=== PATIENT | female | born 1965 | race Caucasian/White ===

== ENCOUNTER → 2018-03-31 06:50 | Outpatient (CLI) | payer OTHER, SELFPAY ==
--- NOTE | 2018-03-31 07:00 | CT_ITS ---
STUDY: CT MAXILLOFACIAL SINUSES REASON FOR EXAM: Female, 52 years old. History of sinusitis. RADIATION DOSAGE (If Supplied By Facility): CTDIvol = ( 33.06 ) mGy, DLP = ( 837.98 ) mGycm TECHNIQUE: The patient was scanned in a multi detector CT scanner. High resolution axial imaging was performed without the administration of intravenous contrast material. Sagittal and coronal images were reconstructed. Individualized dose optimization techniques were used for this CT. COMPARISON: None. FINDINGS: FRONTAL SINUSES: Normal aeration, without mucosal inflammatory disease. ETHMOIDAL SINUSES: Minimal mucosal thickening of the ethmoid sinuses bilaterally slightly worse on the left side. MAXILLARY SINUSES: Minimal mucosal thickening of the lateral wall of the left maxillary sinus. SPHENOIDAL SINUSES: Normal aeration, without mucosal inflammatory disease. There is patency of the bilateral maxillary infundibuli with normal uncinate processes, ethmoid bullae, and hiatus semilunaris. Normal bilateral middle turbinates. Normal bilateral inferior turbinates. There is a right sided nasal septal deviation with a right sided nasal septal spur. There is patency of the bilateral nasal airways. The visualized osseous structures are normal. The visualized bilateral orbital contents are normal. CT/Sinus/Facial Bone IMPRESSION: Minimal mucosal thickening of the lateral wall of the left maxillary sinus. Mucosal thickening of the ethmoid sinuses bilaterally slightly worse on the left side. Electronically Signed: Kuldeep Reece MD at 9:09 EST Tel [phone], Service support ,
--- OUTSIDE RECORDS SUMMARY | 2018-05-26 06:46 | XMS RPT_ITS ---
:1965 Author Organization [facility] Care Team Providers Name Role Phone Jamil Kathleen Attending Unavailable PROVIDER, UNKNOWN Referring Unavailable Jamil Kathleen Primary Care Unavailable Jamil Kathleen Attending Unavailable PROVIDER, UNKNOWN Referring Unavailable Jamil Kathleen Primary Care Unavailable Charlie Dougherty Attending Unavailable Charlie Dougherty Referring Unavailable Jamil Kathleen Primary Care Unavailable PROBLEMS PROBLEMS DATE TYPE CONDITION / CODE ATTENDING STATUS SOURCE 10/14/2017 Admitting Oth abn and Jamli Kathleen [facility] Diagnosis inconclusive System findings on dx Repository imaging of breast / R92.8(ICD-10) 10/07/2017 Admitting Encntr screen Jamil Kathleen Active [facility] Diagnosis mammogram for System malignant neoplasm Repository of breast / Z12.31(ICD-10) PROCEDURES PROCEDURES No Procedure Records FoundRESULTS RESULTS SINUS/FACIAL BONE Observed: 03/31/2018 Status: F Source: JUSTO 7:00 AM [facility] Imaging Services [address] [place] [address] Sinus/Facial Bone MR#: [id number] Acct: [id number] Name: KEDAR NAM Rep #: [id number] : 1965 F 52 From: Kuldeep Reece MD PCP: Jamil Kathleen MD Status: REG CLI Study: Sinus/Facial Bone Date of Exam: 03/31/18 Exam# [id number] Ordering Dr: Charlie Dougherty MD STUDY: CT MAXILLOFACIAL SINUSES REASON FOR EXAM: Female, 52 years old. History of sinusitis. RADIATION DOSAGE (If Supplied By Facility): CTDIvol = ( 33.06 ) mGy, DLP = ( 837.98 ) mGycm TECHNIQUE: The patient was scanned in a multi detector CT scanner. High resolution axial imaging was performed without the administration of intravenous contrast material. Sagittal and coronal images were reconstructed. Individualized dose optimization techniques were used for this CT. COMPARISON: None. FINDINGS: FRONTAL SINUSES: Normal aeration, without mucosal inflammatory disease. ETHMOIDAL SINUSES: Minimal mucosal thickening of the ethmoid sinuses bilaterally slightly worse on the left side. MAXILLARY SINUSES: Minimal mucosal thickening of the lateral wall of the left maxillary sinus. SPHENOIDAL SINUSES: Normal aeration, without mucosal inflammatory disease. There is patency of the bilateral maxillary infundibuli with normal uncinate processes, ethmoid bullae, and hiatus semilunaris. Normal bilateral middle turbinates. Normal bilateral inferior turbinates. There is a right sided nasal septal deviation with a right sided nasal septal spur. There is patency of the bilateral nasal airways. The visualized osseous structures are normal. The visualized bilateral orbital contents are normal. CT/Sinus/Facial Bone IMPRESSION: Minimal mucosal thickening of the lateral wall of the left maxillary sinus. Mucosal thickening of the ethmoid sinuses bilaterally slightly worse on the left side. Electronically Signed: Kuldeep Reece MD at 9:09 EST Tel [phone], Service support , CC: Aba Dougherty MD; Jamil Kathleen MD Trap Operator: Signed [facility] Observed: 10/14/2017 Status: F Source: [employer] 3:12 PM SYSTEM REPOSITORY Patient Name: KEDAR NAM Ultrasound Exam Date/Time 10/14/2017 15:12:48 EDT Exam US Breast Limited Right Ordering Physician MD KATHLEEN DARRELL LEROY Accession Number [id number] CPT4 Codes 01493 () Reason For Exam abnormal mammo Report This examination order number should be linked with [id number], MG Breast Tomosynthesis Diagnostic Right, which includes the reasons for examination, interpretation, and impression for both of the orders. Final Signed Date and Time: 10/19/2017 7:08 am Signed by: HIDE BUYER, SYSTEM Transcribed Date and Time: 10/19/2017 7:08 Transcribed By: MG BREAST TOMOSYNTHESIS Observed: 10/14/2017 Status: F Source: [employer] DIAGNOSTIC RIGHT 12:00 AM SYSTEM REPOSITORY Patient Name: KEDAR NAM Mammography Exam Date/Time 10/14/2017 14:49:58 EDT Exam MG Breast Tomosynthesis Uni Ordering Physician MD KATHLEEN DARRELL LEROY Accession Number [id number] CPT4 Codes 00929 (MG Breast Tomosynthesis Right), 42566 (MG MAMMO 2D DIAGNOSTIC) Reason For Exam Abnormal mammogram of right breast Report PATIENT HISTORY: Family history of breast cancer at age 28 in paternal aunt, breast cancer at age 40 in paternal aunt. No Hormone Replacement Therapy Patient has never smoked. Patient's BMI is 37.1. TIME SINCE LAST MAMMOGRAM: Last mammogram was performed less than 1 month ago. REASON FOR EXAM: addl evaluation requested from abnormal screening. PROCEDURE: MG BREAST TOMOSYNTHESIS RIGHT: OCTOBER 14, 2017 - 2D/3D Procedure 3D views: Spot compression MLO and ML view(s) were taken of the right breast. 2D views: Spot compression MLO and ML view(s) were taken of the right breast. Prior study comparison: October 07, 2017, bilateral MG breast tomosynthesis bl scr, performed at [facility]. May 15, 2015, bilateral screening mammogram, performed at [facility]. July 23, 2011, bilateral screening mammogram, performed at [facility]. December 14, 2008, bilateral screening mammogram, performed at [facility]. TISSUE DENSITY: There are scattered fibroglandular densities. . FINDINGS: The patient was recalled from her screening mammogram to evaluate a right breast asymmetry. Mammogram: On today's additional views, the abnormality corresponds to a bilobed mass just superior to the nipple. Though the correlate is not obvious on the orthogonal view, it localizes laterally. Additional imaging evaluation with ultrasound was performed. Left breast ultrasound: In the area of mammographic interest at 9:30, 6 cm from the nipple, there is a bilobed, mostly anechoic 0.7 x 0.3 x 0.4 cm mass with avascular, thin septation and internal echogenicity. This likely represents a complicated cyst and corresponds to the mammographic finding. Short-term follow-up recommended. IMPRESSION: Probably benign right breast lesion, suspected to represent a compensated cyst. Short-term interval follow-up with ultrasound in six months recommended to ensure stability. Markings on images: BB's = Nipples; skin lesions Open napaimute = Palpable Line = Scar US BREAST LIMITED RIGHT: OCTOBER 14, 2017 - Standard views. 2D digital mammography and tomosynthesis imaging were performed and reviewed with CAD. ASSESSMENT: Category 3 Probably benign (Overall) RECOMMENDATION: Ultrasound of the right breast in 6 months. . Report Dictated on Final Signed Date and Time: 10/14/2017 3:12 pm Signed by: MD ANDRADE KERISTEN L MG BREAST TOMOSYNTHESIS Observed: 10/07/2017 Status: F Source: [facility] 12:00 AM SYSTEM REPOSITORY Patient Name: KEDAR NAM Mammography Exam Date/Time 10/07/2017 14:12:04 EDT Exam MG Breast Tomosynthesis Scr Ordering Physician MD ARIADNA, JAMIL POLLACK Accession Number [id number] CPT4 Codes 36028 (MG Breast Tomosynthesis Scr Bl), 26558 (MG MAMMO 2D SCREENING) Reason For Exam screening Report PATIENT HISTORY: Family history of breast cancer at age 28 in paternal aunt, breast cancer at age 40 in paternal aunt. No Hormone Replacement Therapy Patient has never smoked. Patient's BMI is 4.2. TIME SINCE LAST MAMMOGRAM: Last mammogram was performed 2 years and 5 months ago. REASON FOR EXAM: screening, asymptomatic. PROCEDURE: MG BREAST TOMOSYNTHESIS BL SCR: OCTOBER 07, 2017 - 2D/3D Procedure 3D Bilateral CC and MLO view(s) were taken. 2D Bilateral CC and MLO view(s) were taken. Prior study comparison: May 15, 2015, bilateral screening mammogram performed at [facility]. July 23, 2011, bilateral screening mammogram, performed at [facility]. TISSUE DENSITY: There are scattered fibroglandular densities. FINDINGS: An asymmetry is present in the superior aspect of the right breast on MLO tomosynthesis view. Further diagnostic imaging is recommended. There are no suspicious masses and no suspicious calcifications present in the left breast. Markings on images: BB's = Nipples; skin lesions Open napaimute = Palpable Line = Scar 2D digital mammography and tomosynthesis imaging were performed and reviewed with CAD. ASSESSMENT: Category 0 Incomplete: need additional imaging evaluation 1. Right breast asymmetry. 2. No mammographic evidence of malignancy left breast. RECOMMENDATION: Follow-up diagnostic mammogram of the right breast with possible ultrasound. Report Dictated on Cancer Risk Assessment: This risk assessment is based on patient provided information collected in a risk survey taken at the time of this examination. 5 year breast cancer risk is 4.6% - if greater than or equal to 1.7%, recommend discussion regarding the significance of these results and options for possible risk reduction. Lifetime breast cancer risk: 26.3% - If greater than or equal to 20%, consider annual mammogram and annual screening Breast MRI or follow up in high risk clinic. Is the patient at elevated risk based on the HBOC criteria? Yes (Hereditary Breast and Ovarian Cancer) - If yes, consider genetic counseling and testing with high risk follow up. HNPCC mutation risk (Dalal Syndrome): 1% - if greater than or equal to 5%, consider genetic counseling, testing and screening colonoscopy. Final Signed Date and Time: 10/07/2017 4:24 pm Signed by: MD KARLA, VENKATA Donovan ALLERGIES ALLERGIES No Allergies Records FoundENCOUNTERS ENCOUNTERS ADMIT/DISCHARGE ACCOUNT NUMBER ADMITTING ENCOUNTER LOCATION SOURCE CLASS 03/31/2018 [id number] [facility] 10/14/2017 [id number] Ambulatory [facility] Repository 10/07/[id number] [facility] Repository PAYERS PAYERS ENCOUNTER GUARANTOR PAYER SUBSCRIBER SOURCE 03/31/2018 KEDAR Yu Primary KEDAR Yu [place] [id number] Insurance:AULTCAREPol ROBARTDOB: [facility] Number: [id number] [facility] RDNORTH [id number] Repository [facility] Date:[id number]: [phone]) QVC [address], [place] [phone] () [phone]: 03/31/2018 [facility]SELF [facility] Number: Effective Repository Date:2018-03-28 10/14/2017 Kedar Yu Primary Kedar Yu [facility] RobartDOB: Insurance:BuckeyePoli RobartDOB: System cy Number: [id number] [place], [place] [address]Fqm: (HP) 10/07/2017 Kedar L Primary Kedar Yu [facility] RobartDOB: Insurance:BuckeyePoli RobartDOB: System cy Number: Effective [id number] [place], [place] [address]Lzr: (HP)
== END ==
PROVIDERS: Family Provider Family Medicine; PCP Family Medicine; Referring Provider Otolaryngology; Visit Provider Otolaryngology
DX: J32.9 Chronic sinusitis, unspecified (principal)
CPT/HCPCS: 70486